=== PATIENT | female | born 1995 | race Caucasian/White ===

== ENCOUNTER → 2021-01-27 07:07 | Outpatient (CLI) | payer OTHER, SELFPAY ==
[2021-01-27 08:58] LABS: Glucose Fasting 81 mg/dL (70-100)
[2021-01-27 10:27] LABS: Glucose 1 Hour 155 mg/dL (70-170)
[2021-01-27 10:47] LABS: Glucose Tol Interpretation INTERPRETATION
[2021-01-27 11:20] LABS: Glucose 3 Hour 111 mg/dL (70-115)
[2021-01-27 12:55] LABS: Glucose 2 Hour 149 mg/dL (70-140)
== END ==
PROVIDERS: Referring Provider Nurse Practitioner Obstetrics & Gynecology; Visit Provider Nurse Practitioner Obstetrics & Gynecology
DX: Z34.90 Encounter for supervision of normal pregnancy, unspecified, unspecified trimester (principal); Z13.1 Encounter for screening for diabetes mellitus; Z86.32 Personal history of gestational diabetes; Z3A.17 17 weeks gestation of pregnancy
CPT/HCPCS: 36415; 82951; 82952

== ENCOUNTER → 2021-02-14 11:56 | Outpatient (CLI) | payer OTHER, MEDICAID, SELFPAY ==
--- NOTE | 2021-02-14 11:58 | DI.US.S_ITS ---
PROCEDURE: US OB >= 14 WEEKS FETUS INDICATIONS: 20 WEEK ANATOMY SCAN OUTSIDE/PRIOR DATING DATA: Last menstrual period (LMP): September 24, 2020 . LMP-based estimated date of delivery (RADHA): July 01, 2021 . First dating scan (date and location): [facility]; February 14, 2021 . Estimated date of delivery (RADHA) from first dating scan: July 05, 2021 . TECHNIQUE: Real-time scanning was performed of the fetus, with image documentation and biometric measurements. COMPARISON: None. FINDINGS: General: A single living intrauterine gestation is present. Presentation: Variable. Placenta: Placental position is posterior , without previa. Amniotic fluid index: 12.6 cm, normal range is 5-24 cm. heart rate: 155 beats per minute. Maternal cervical canal: 4.9 cm long. Normal lower limit is 2.5 cm. biometrics: Biparietal diameter: 4.7 cm Head circumference: 17.1 cm Abdominal circumference: 15.3 cm Femur length: 3 cm Estimated gestational age from initial scan: not applicable. Composite gestational age from present scan: 19 weeks, 6 days Estimated weight and percentile: 322 g +/-48 g; 21 percentile Measurement variability for biometric dating: +/- 7 days from 14 weeks to 15 weeks 6 days gestation, +/- 10 days from 16 weeks to 21 weeks 6 days gestation, +/- 2 weeks from 22 weeks to 27 weeks 6 days gestation, +/- 3 weeks for 28 weeks gestation or later. weight reference: 4500 g or EFW >90/95% is considered macrosomia or large for gestational age. EFW <10% is small for gestational age. EFW 5% or less is considered intra-uterine growth restriction. Anatomic survey: Neuro: Ventricles are non-dilated at less than 10 mm. Cisterna magna is normal at 3-11 mm. Cerebellum is normal in size and morphology. Nuchal skin fold: Normal at less than 6 mm between 14-21 weeks gestational age. Face: Nose and lips, facial profile are normal. Spine: No evidence for spina bifida. Heart: 4-chambered heart is present, with normal ventricular outflow tracts. Diaphragm: Diaphragm is intact. Stomach: Left-sided stomach is present. Kidneys: No hydronephrosis. Normal is less than 5 mm in 2nd trimester, less than 7 mm in 3rd trimester. Cord: 3-vessel cord has orthotopic insertion. Bladder: Normal in size. Extremities: All 4 extremities identified. IMPRESSION: Live single intrauterine gestation as detailed above. Dictated by: Nate Molina M.D. on 02/14/2021 at 13:58 Approved by: Nate Molina M.D. on 02/14/2021 at 14:01
== END ==
PROVIDERS: Referring Provider Nurse Practitioner Obstetrics & Gynecology; Visit Provider Nurse Practitioner Obstetrics & Gynecology
DX: Z34.92 Encounter for supervision of normal pregnancy, unspecified, second trimester (principal); Z3A.19 19 weeks gestation of pregnancy
CPT/HCPCS: 76811

== ENCOUNTER → 2021-04-07 07:16 | Outpatient (CLI) | payer OTHER, MEDICAID, SELFPAY ==
[2021-04-07 08:38] LABS: Hematocrit 29.8 % (36-46); Hemoglobin 10.3 g/dL (12.0-16.0); Mean Corpuscular HGB Conc 34.7 % (30-36); Mean Corpuscular Hemoglobin 29.5 PG (26-34); Platelet Count 224 X10^3/uL (150-400); Red Blood Cell Count 3.51 X10^6/uL (4.0-5.2); Red Cell Distribution Width 12.8 % (11.6-14.8); White Blood Cell Count 8.4 X10^3/uL (4.5-11.0)
[2021-04-07 09:10] LABS: Glucose Fasting Gestational 78 mg/dL (76-95)
[2021-04-07 10:44] LABS: Glucose Tol Interp,Gestational INTERPRETATION
[2021-04-07 11:06] LABS: Glucose 2 Hour Gest 164 mg/dL (76-155)
[2021-04-07 11:07] LABS: Glucose 1 Hour Gest 160 mg/dL (76-180)
[2021-04-07 13:46] LABS: Glucose 3 Hour Gest 111 mg/dL (76-140)
== END ==
PROVIDERS: Referring Provider Nurse Practitioner Obstetrics & Gynecology; Visit Provider Nurse Practitioner Obstetrics & Gynecology
DX: Z34.90 Encounter for supervision of normal pregnancy, unspecified, unspecified trimester (principal); Z3A.26 26 weeks gestation of pregnancy
CPT/HCPCS: 36415; 82951; 82952; 85027

== ENCOUNTER → 2021-06-07 12:18 | Outpatient (ROUT) | payer OTHER, MEDICAID, SELFPAY | PROVIDERS: Visit Provider Nurse Practitioner Obstetrics & Gynecology | DX: Z36.85 Encounter for antenatal screening for Streptococcus B (principal); Z3A.36 36 weeks gestation of pregnancy | CPT/HCPCS: 87081 ==

== ENCOUNTER 2021-06-24 04:09 | Inpatient (IN) | payer OTHER, MEDICAID, SELFPAY ==
--- NOTE | 2021-06-24 04:53 | PM.OBHP.1 ---
OB HPI Date/Time Date of admission: 06/24/21 Date Patient Seen: 06/24/21 Time Patient Seen: 04:53 History of Present Condition Chief complaint: Labor : 2 Para: 1 Estimated Date of Delivery: 07/04/21 Estimated Gestational Age (weeks): 38.4 Narrative: Roselia De Souza is a 26 year old female here for labor evaluation. Noticed PROm 06/23/21 @ 1330 for clear fluid. Declined to come in until contractions started or 24 hours passed. Has had strong contractions for 2 hours now. +FM. Fluid remains clear/pink. No VB. Uncomplicated pN care w/ CNM. Desires low intervention . Partner is present and supportive. History of Present care: good care, initiated at week # (11), number of visits (7) and pounds weight gain (13) Dating criteria: LMP confirmed by 1st trimester US Ultrasounds: normal mid trimester US Obstetrical complications: other (anemia) Medical complications: none Preadmission Labs Blood type: AB (+) positive -: Antibody screen: negative, Cystic fibrosis screen: negative, GBS status: negative, HBsAG: negative, HIV: negative and RPR/VDLR: negative -: Chlamydia screen: not detected and Gonorrhea screen: not detected -: Rubella: immune and Varicella: immune HCT: 29.8 HCAB: negative Cell-free DNA: Negative, Male 3 hr GTT: 1 hr (160), 2 hr (164) and 3 hr (111) Fasting blood glucose: 78 Prior (ies) History: 01/18/2017: NSVB @ 39wks, female, 7#15oz, epidural, [place] Evaluation Evaluation Baseline heart rate: 140 Variability: Moderate (11-25) monitor accelerations: Present Monitor Decelerations: Absent Contraction Frequency (minutes): 3 Uterine Contraction Intensity: Moderate Status: Category l Dilation (cm): 6 Effacement (%): 90 Dilation: >/=5 cm Effacement: >/=80% station: -2 Position of cervix: mid Consistency: soft Paul score: 10 PFSH Medical History (Updated 06/24/21 @ 05:16 by Liset Zamora CNM) Anxiety Social History (Updated 06/24/21 @ 05:16 by Liset T Noah, CNM) marital status: unmarried,living together number of children: 1 household members: significant other and children lives independently: Yes caregiver/support person: No Smoking Status: Never smoker Meds Home Medications and Allergies Home Medications Medication Instructions Recorded Confirmed Type ferrous sulfate 325 mg (65 mg 325 mg PO DAILY 06/24/21 06/24/21 History iron) tablet Review of Systems Review of Systems ROS: Yes All systems reviewed with the patient and are negative except as otherwise documented and unobtainable due to mental status OB Exam Resp Effort & Inspection: normal respiratory effort Auscultation: clear to auscultation bilaterally Cardio Rate: regular rate Rhythm: regular rhythm Heart Sounds: S1 normal and S2 normal Presentation: vertex Objective Labs Result Diagrams: 06/24/21 04:45 Assessment and Plan Assessment and Plan Assessment and Plan narrative: A: Term Primipara Active labor SROM x 16 hours without sx of infection No indication for GBS prophylaxis Cat I FHR P: Admit, routine orders. May swithc to IA. Labor support, PRN. reassess in 4 hours or sooner, PRN.
[2021-06-24 05:09] LABS: Add Manual Diff / Slide Review NO; Basophils Absolute Auto 100 /uL (0-100); Basophils Percent Auto 0.6 % (0-2); Eosinophils Absolute Auto 0 /uL (0-450); Eosinophils Percent Auto 0.2 % (2-4); Hematocrit 34.1 % (36-46); Hemoglobin 11.1 g/dL (12.0-16.0); Lymphocytes Absolute Auto 1800 /uL (1100-4500); Lymphocytes Percent Auto 19.7 % (25-40); Mean Corpuscular HGB Conc 32.5 % (30-36); Mean Corpuscular Hemoglobin 25.7 PG (26-34); Mean Corpuscular Volume 79.1 fL (80-100); Monocytes Absolute Auto 500 /uL (0-900); Monocytes Percent Auto 5.1 % (3-14); Neutrophils Absolute Auto 6700 /uL (1500-7000); Neutrophils Percent Auto 74.4 % (50-75); Platelet Count 188 X10^3/uL (150-400); Red Blood Cell Count 4.31 X10^6/uL (4.0-5.2); Red Cell Distribution Width 15.5 % (11.6-14.8)
[2021-06-24 05:23] LABS: COVID19 -Nasal RAPID Negative (Negative)
[2021-06-24 07:19] VITALS: BP 135/87
[2021-06-24] MEDS: OXYTOCIN PREMIX 30 UNIT/500 ML PLAST..BAG 200 UNIT IV (12:28)
--- NOTE | 2021-06-24 12:44 | P.PCNOB_ITS ---
Labor & Delivery Delivery date: 06/24/21 Intrapartal Events: None Cervical ripening method: none Induction method: none Delivery monitor: external FHT Route of delivery: Episiotomy description: None L&D Laceration Description: None Estimated blood loss (mL): 25 Anesthesia Type: Other (Nitrous Oxide) Narrative: Roselia labored well without medication for augmentation or anesthesia. Began to feel spontaneous urge to push and initiated use of nitrous oxide. NSVB of a vigorous baby boy in LORENZO position. There was no nuchal cord and the shoulders delivered with McRobert's maneuver <30 seconds after delivery of the head. Chauncey was lifted to maternal abdomen by patient for drying and skin to skin. 30 units of pitocin in 500mL was started at 200mL/hr for AMTSL. After cessation of pulsation, the cord was double clamped by CNM and cut by FOB. Gentle cord traction and single maternal push led to spontaneous, Schultze delivery of an apparently intact placenta, membranes and 3VC. Fundus immediately firm. Vagina and perineum inspected and intact. QBL 25mL. Both mother and baby stable and skin to skin as I left the room. Baby 1: Infant gender: Male Presentation: vertex Position: Left Occiput Anterior Placenta delivery description: Spontaneous Cord Vessel Description: 3 Vessels score (1 min): 9 score (5 min): 9 weight: 3.684 kg Plan for aftercare: Routine care
--- NOTE | 2021-06-25 08:18 | P.DS_ITS ---
Discharge Providers Provider Date of admission: 06/24/21 04:09 Discharge Date: 06/25/21 Consults: 06/25/21 12:[address] [employer]or Routine Comment: Discharge provider: Liset Zamora CNM Summary Hospital Course Date Patient Seen: 06/25/21 Time Patient Seen: 08:19 Diagnoses: o80 Hospital Course: Roselia is voiding, ambulating and independently. Tolerating a ge neral diet. Pain is well controlled with PO medication. Breasfeeding without concerns. Partner remains present and supportive. Feels ready for discharge to home this morning. Peripartum Data Delivery Method: Natural Vaginal Laceration Description: None Episiotomy description: None Procedures: o80 complications: none [place] 1: Gender: Male Disposition of : home Discharge Diagnosis (1) Encounter for full-term uncomplicated delivery: Start Date: 06/24/21 Start Time: 12:26 Status: Acute Problem Details: Routine Status at Discharge Cognitive/behavioral status at discharge: oriented and calm Functional status at discharge: independent ambulation Overall status at discharge: patient is back to baseline Time Spent with Patient Time attestation: Total time spent providing and/or coordinating discharge services: Time spent: Less than 30 minutes Objective Labs Result Diagrams: 06/24/21 04:45 Exam Vital Signs (past 8 hours): BP 123/74mmHg, HR 72bpm, RR 16/min, T 98.1F Temporal Other: Fundus firm @ u-1, lochia scant, no clots. Perineum intact. Discharge Plan Discharge Plan Patient Disposition: Home Discharge orders & Medications Prescriptions: Discontinued ferrous sulfate 325 mg (65 mg iron) Tablet 325 mg PO DAILY 0RF Follow up/Referrals: Liset Zamora CNM [[employer]] - (11:40am Wednesday, July 07, 2021 TeleHealth Call 10:00am Friday, August 06, 2021 appointment in office) Diet/Activity/Treatments Diet: Regular Skin/Wound/Dressing Care Report to your healthcare provider any signs of infection, such as:: chills, fever, increased pain, unusual drainage and unusual redness Visit Report/Discharge Packet Stand Alone Forms: Discharge: Care
[2021-06-25 08:21] VITALS: BP 118/71; PULSE 76; RESP 16; TEMP 36.7
== END 2021-06-25 10:11 | disposition home or self-care (01) | DRG 560 ==
PROVIDERS: Admitting Provider Nurse Practitioner Obstetrics & Gynecology; Referring Provider Nurse Practitioner Obstetrics & Gynecology; Visit Provider Nurse Practitioner Obstetrics & Gynecology
DX: O80 Encounter for full-term uncomplicated delivery (principal); Z37.0 Single live birth; Z3A.38 38 weeks gestation of pregnancy
CPT/HCPCS: 36415; 59050; 85025; 86850; 86900; 86901; 87635; C9803; G0379; J2590